=== PATIENT | female | born 1980 | race Two or more races ===

== ENCOUNTER 2023-09-19 14:42 | Emergency (ER) | payer OTHER, SELFPAY ==
[2023-09-19 14:43] VITALS: BP 152/113; PULSE 93; RESP 18; TEMP 35.7; O2SAT 98; BMI 35.3
--- NOTE | 2023-09-19 15:11 | EX.ED.VIS.EY ---
HPI History of Present Illness Chief Complaint: Eye Problem Detail of Chief Complaint: Left eye irritation Informant: patient and family Onset/Context/Timing Location: Left Eye Onset: Yesterday Narrative Narrative: Patient presents secondary to left eye irritation and swelling. Patient states yesterday they were walking around at different stores [place] and went to the grocery store. She noted itching and watering to her left eye. She did take an antihistamine overnight. About 2 hours ago she was in the kitchen where her was cooking and states there was something in the air that seem to make it worse. She noted the surface of her eye seem to be swollen and now she notes some slight swelling around the right eye. She does not wear glasses or contacts. There was no known injury to her eye. She denies any eye pain. She states after her symptoms worsen 2 hours ago she went and took a shower and washed her face good and that did seem to help. PFSH PFSH Medical History no medical history no medical history Home Medications prednisone 20 mg tablet 40 mg (2 x 20 mg) PO DAILY #8 tabs 09/19/23 [Rx Last Taken Unknown] Allergy/AdvReac Type Severity Reaction Status Date / Time No Known Allergies Allergy Verified 09/19/23 14:43 Social History Smoking Status: Never smoker ROS ROS ED Constitutional Constitutional ED: Denies chills or fever(s) Eyes Eyes: Reports other Details: Left periorbital swelling and watering. Itching to the left eye. ENT ENT ED: Reports other Details: Recent congestion and URI symptoms, but seems to be improving. ; Denies rhinorrhea or sore throat Cardiovascular Cardiovascular: Denies chest pain or palpitations Respiratory/Chest Respiratory/Chest: Denies cough or dyspnea Gastrointestinal Gastrointestinal: Denies abdominal pain, nausea or vomiting Musculoskeletal Musculoskeletal: Denies back pain or extremity pain Integumentary Denies Abrasions or rash Neurologic Neurologic: Denies headache(s) or weakness Psychiatric Psychiatric: Denies anxiety or depression Endocrine Endocrinology: Denies polydipsia or polyuria Allergic/Immunologic Allergic/Immunologic ED: Denies lip swelling or urticaria EXAM Physical Exam Const Vital Signs: 09/19/23 14:43 Temperature 96.2 F L Temperature Source Temporal Pulse Rate 93 Respiratory Rate 18 Blood Pressure 152/113 H Blood Pressure Mean 126 Pulse Ox 98 Oxygen Delivery Method Room Air Positive well nourished and well developed General Appearance ED: well developed Eyes Eyes Narrative: Mild left eyelid edema. Slight chemosis noted. Minimal injection. Pupils equal and reactive and extraocular movements fully intact. Resp normal respiratory effort Cardio regular rate and regular rhythm GI non-tender Auscultation: normoactive bowel sounds Extremity normal to inspection Neuro oriented x3 and moves all extremities MDM MDM MDM Narrative Medical decision making narrative: Patient given Benadryl and prednisone orally. Gentamicin eyedrops applied. On repeat evaluation patient does have some improvement in her symptoms. Should be given prescription for 4 additional days of prednisone. She will take Benadryl at home [id number]. She will be sent home with gentamicin eyedrops and advised she can use those 3 times a day until her symptoms resolve for 24 hours to help prevent infection. She will be given ophthalmology's information for follow-up if she is not improving. She is comfortable with this plan. Discharge Plan Triage Chief Complaint: Eye Problem ED Provider: Jodie Blake Dx/Rx/DC Orders Clinical Impression: Chemosis of conjunctiva, Allergic reaction Instructions: ED General Allergic Reactions, ED Conjunctivitis, Nonspecific Prescriptions: New prednisone 20 mg tablet 40 mg PO DAILY Qty: 8 0RF Primary Care Provider: Care Physician,No Primary Referrals: Geraldo Damon MD [Med Staff - Active Staff] - As Needed Care Physician,No Primary [Primary Care Provider] - Activity Restrictions/Additional Instructions: As discussed, you can use the gentamicin eyedrops 3 times a day until symptoms are resolved for 24 hours. You have been written for 4 additional days of prednisone. You can also take Benadryl [id number]. Disposition Disposition: Home, Self Care
[2023-09-19] MEDS: Gentamicin Sulfate 1 OPTH.BTL 2 DRP LEFT EYE (15:14)
[2023-09-19] MEDS: DiphenhydrAMINE 25 MG Capsule 50 MG PO (15:14)
[2023-09-19] MEDS: predniSONE 20 MG Tablet 40 MG PO (15:14)
== END 2023-09-19 16:20 | disposition home or self-care (01) ==
PROVIDERS: Emergency Provider Emergency Medicine; Visit Provider Emergency Medicine
DX: H11.422 Conjunctival edema, left eye (principal); T78.40XA Allergy, unspecified, initial encounter; X58.XXXA Exposure to other specified factors, initial encounter
CPT/HCPCS: 99284